=== PATIENT | male | born 1975 | race African-American/Black ===

== ENCOUNTER 2017-05-23 00:25 | Inpatient (IN) | payer OTHER ==
[~2017-05-23] VITALS: Ht 185.4 cm; Wt 85.1 kg
[2017-05-23 00:38] VITALS: BP 125/79; PULSE 99; RESP 20; TEMP 98.2; O2SAT 99
[2017-05-23] MEDS ORDERED: PROZ40CA PO (01:19)
[2017-05-23] MEDS ORDERED: SERO400T PO (01:19)
[2017-05-23] MEDS ORDERED: MULTCAP3 PO (01:19)
[2017-05-23] MEDS ORDERED: COMPLERA (01:19)
[2017-05-23] MEDS ORDERED: SODIUM CHLORIDE 0.9% FLUSH 10 ML FLUSH IVF PRN (01:30)
[2017-05-23 01:57] LABS: AUTOMATED NEUTROPHIL # 4.3 TH/MM3 (1.8-7.7); BASOPHIL % 0.8 % (0.0-2.0); EOSINOPHIL # 0.1 TH/MM3 (0-0.4); EOSINOPHIL % 1.3 % (0.0-4.0); HEMATOCRIT 37.8 % (39.0-51.0); HEMO FLAGS DIFF FINAL; LYMPH % 20.3 % (9.0-44.0); LYMPHOCYTE # 1.2 TH/MM3 (1.0-4.8); MEAN CELL VOLUME 92.4 FL (80.0-100.0); MEAN CORPUSCULAR HEMOGLOBIN 30.4 PG (27.0-34.0); MEAN CORPUSCULAR HGB CONC 32.9 % (32.0-36.0); MONO % 5.9 % (0.0-8.0); NEUT % 71.7 % (16.0-70.0); PLATELET COUNT 358 TH/MM3 (150-450); RED BLOOD COUNT 4.09 MIL/MM3 (4.50-5.90); RED CELL DISTRIBUTION WIDTH 14.4 % (11.6-17.2); WHITE BLOOD COUNT 5.9 TH/MM3 (4.0-11.0)
[2017-05-23 02:00] LABS: BLOOD, URINE NEG (NEG); GLUCOSE,URINE NEG (NEG); KETONE, URINE NEG (NEG); NITRITE,URINE NEG (NEG); PH, URINE 5.5 (5.0-8.5)
[2017-05-23 02:05] LABS: CHLORIDE 103 MEQ/L (98-107); POTASSIUM 3.4 MEQ/L (3.5-5.1); SODIUM (NA) 138 MEQ/L (136-145)
[2017-05-23 02:09] LABS: ANION GAP 8 MEQ/L (5-15); BICARBONATE 26.6 MEQ/L (21.0-32.0); BLOOD UREA NITROGEN 11 MG/DL (7-18)
[2017-05-23 02:11] LABS: URINE COLOR STRAW (YELLW/STRAW)
[2017-05-23 02:12] LABS: ALT (GPT) 37 U/L (12-78); AST (GOT) 40 U/L (15-37); GLOMERULAR FILTRATION RATE 99 ML/MIN (>89)
[2017-05-23 02:13] LABS: TOTAL BILIRUBIN ADULT 0.3 MG/DL (0.2-1.0)
[2017-05-23 02:14] LABS: SQUAMOUS EPITHELIAL CELL URINE 0-5 /hpf (0-5)
[2017-05-23 02:15] LABS: ALKALINE PHOSPHATASE 73 U/L (45-117); COMMENT (UR) CULT NOT INDICATED; CULTURE IF INDICATED CULT NOT INDICATED
--- NOTE | 2017-05-23 02:38 | PD ---
HPI Chief Complaint: Suicide Ideation/Attempt Time Seen by Provider: 01:11 Travel History International Travel<30 days: No Contact w/Intl Traveler<30days: No Traveled to known affect area: No History of Present Illness HPI The patient is a 41-year-old male that feels depressed and is afraid he is going to jump off the [place]. He comes from [place]. He has been off of his psychiatric medicines for 8 days. He has other complaints, he complains of a right inguinal hernia that is been there for 3 months and is not causing any nausea or vomiting and he complains of some pustules on the right anterior shoulder and on the abdomen. He denies any fever. PFSH Past Medical History Autoimmune Disease: Yes (HIV+) Blood Disorders: Yes (HIV+) Depression: Yes (chronic depression) Diminished Hearing: No Inguinal Hernia: Yes Medical other: Yes (Liver failure) Tetanus Vaccination: < 5 Years Influenza Vaccination: Yes Past Surgical History Other Surgery: Yes (Right tib/fib with 11 screws) Social History Alcohol Use: Yes (When he is feeling depressed) Tobacco Use: Yes (varies by availability) Substance Use: Yes Allergies-Medications (Allergen,Severity, Reaction): Coded Allergies: No Known Allergies (Unverified , 05/23/17) Reported Meds & Prescriptions Reported Meds & Active Scripts Active Reported Multivitamins (Multiple Vitamin) 1 Cap Cap PO DAILY [Complera] Seroquel (Quetiapine Fumarate) 400 Mg Tab 400 Mg PO DAILY Prozac (Fluoxetine HCl) 40 Mg Cap 40 Mg PO DAILY Review of Systems Except as stated in HPI: all other systems reviewed are Neg Physical Exam Narrative GENERAL: The patient is alert, oriented 3 in no physical distress. SKIN: Focused skin assessment warm/dry. No needle tracks are present, no recent wrist slash bryan are present. HEAD: Atraumatic. Normocephalic. Neither raccoon eyes. Cespedes sign is present. EYES: Pupils equal and round. No scleral icterus. No injection or drainage. ENT: No nasal bleeding or discharge. Mucous membranes pink and moist. There is no hemotympanum present. NECK: Trachea midline. No JVD. There is no meningismus present. CARDIOVASCULAR: Regular rate and rhythm. No murmur appreciated. RESPIRATORY: No accessory muscle use. Clear to auscultation. Breath sounds equal bilaterally. GASTROINTESTINAL: Abdomen soft, non-tender, nondistended. Hepatic and splenic margins not palpable. No guarding or rebound is present. MUSCULOSKELETAL: No obvious deformities. No clubbing. No cyanosis. No edema. NEUROLOGICAL: Awake and alert. No obvious cranial nerve deficits. Motor grossly within normal limits. Normal speech. PSYCHIATRIC: The patient appears depressed and he does have a flat affect; insight and judgment fair. Data Data Last Documented VS Vital Signs Date Time Temp Pulse Resp B/P (MAP) Pulse Ox O2 Delivery O2 Flow Rate FiO2 05/23/17 01:05 Room Air 05/23/17 00:38 98.2 99 20 125/79 (94) 99 Orders Orders Complete Blood Count With Diff (05/23/17 01:18) Comprehensive Metabolic Panel (05/23/17 01:18) Urinalysis - C+S If Indicated (05/23/17 01:18) Psych Screen (05/23/17 01:18) Sodium Chloride 0.9% Flush (Ns Flush) (05/23/17 01:30) Drug Screen, Random Urine (05/23/17 01:18) Labs Laboratory Tests Test 05/23/17 01:51 White Blood Count 5.9 TH/MM3 Red Blood Count 4.09 MIL/MM3 Hemoglobin 12.4 GM/DL Hematocrit 37.8 % Mean Corpuscular Volume 92.4 FL Mean Corpuscular Hemoglobin 30.4 PG Mean Corpuscular Hemoglobin Concent 32.9 % Red Cell Distribution Width 14.4 % Platelet Count 358 TH/MM3 Mean Platelet Volume 6.8 FL Neutrophils (%) (Auto) 71.7 % Lymphocytes (%) (Auto) 20.3 % Monocytes (%) (Auto) 5.9 % Eosinophils (%) (Auto) 1.3 % Basophils (%) (Auto) 0.8 % Neutrophils # (Auto) 4.3 TH/MM3 Lymphocytes # (Auto) 1.2 TH/MM3 Monocytes # (Auto) 0.3 TH/MM3 Eosinophils # (Auto) 0.1 TH/MM3 Basophils # (Auto) 0.0 TH/MM3 CBC Comment DIFF FINAL Differential Comment Urine Color STRAW Urine Turbidity CLEAR Urine pH 5.5 Urine Specific [place] 1.004 Urine Protein NEG mg/dL Urine Glucose (UA) NEG mg/dL Urine Ketones NEG mg/dL Urine Occult Blood NEG Urine Nitrite NEG Urine Bilirubin NEG Urine Leukocyte Esterase NEG Urine Squamous Epithelial Cells 0-5 /hpf Microscopic Urinalysis Comment CULT NOT INDICATED Blood Urea Nitrogen 11 MG/DL Creatinine 1.00 MG/DL Random Glucose 76 MG/DL Total Protein 7.7 GM/DL Albumin 3.5 GM/DL Calcium Level 9.0 MG/DL Alkaline Phosphatase 73 U/L Aspartate Amino Transf (AST/SGOT) 40 U/L Alanine Aminotransferase (ALT/SGPT) 37 U/L Total Bilirubin 0.3 MG/DL Sodium Level 138 MEQ/L Potassium Level 3.4 MEQ/L Chloride Level 103 MEQ/L Carbon Dioxide Level 26.6 MEQ/L Anion Gap 8 MEQ/L Estimat Glomerular Filtration Rate 99 ML/MIN Urine Opiates Screen NEG Urine Barbiturates Screen NEG Urine Amphetamines Screen NEG Urine Benzodiazepines Screen NEG Urine Cocaine Screen NEG Urine Cannabinoids Screen NEG MDM Medical Decision Making Medical Screen Exam Complete: Yes Emergency Medical Condition: Yes Medical Record Reviewed: Yes Interpretation(s) The CBC shows a hemoglobin of 12.4 and hematocrit of 37.8 but is otherwise normal. The complete metabolic profile shows a potassium of 3.4, AST of 40 but is otherwise normal. The toxicology screen is negative for all substances tested. The urinalysis is normal and culture is not indicated. Differential Diagnosis Major depression, attention seeking maneuver, drug seeking behavior, electrolyte disorder, non-compliance to medications Narrative Course The patient has major depression and noncompliance to medication. He is medically cleared at this time. Physician Communication Physician Communication We discussed the patient with the psychiatric service at [facility]. Disposition: 65 DISC TO PSYCH CARE FACILITY Condition: Stable Marko Preston MD May 23, 2017 02:38
[2017-05-23 03:39] VITALS: BP 128/82; PULSE 78; RESP 18; O2SAT 96
[2017-05-23 08:00] VITALS: BP 124/79; PULSE 73; RESP 18; O2SAT 99
[2017-05-23 12:30] VITALS: BP 130/73; PULSE 70; RESP 18; O2SAT 98
[2017-05-23 17:56] VITALS: BP 128/68; PULSE 92; RESP 16; O2SAT 97
--- NOTE | 2017-05-23 19:33 | PD ---
HPI Chief Complaint: Suicide Ideation/Attempt Time Seen by Provider: 20:03 Travel History International Travel<30 days: No Contact w/Intl Traveler<30days: No Traveled to known affect area: No PFSH Past Medical History Autoimmune Disease: Yes (HIV+) Blood Disorders: Yes (HIV+) Depression: Yes (chronic depression) Diminished Hearing: No Inguinal Hernia: Yes Medical other: Yes (Liver failure) Tetanus Vaccination: < 5 Years Influenza Vaccination: Yes Past Surgical History Other Surgery: Yes (Right tib/fib with 11 screws) Social History Alcohol Use: Yes (When he is feeling depressed) Tobacco Use: Yes (varies by availability) Substance Use: Yes Allergies-Medications (Allergen,Severity, Reaction): Coded Allergies: No Known Allergies (Unverified , 05/23/17) Reported Meds & Prescriptions Reported Meds & Active Scripts Active Reported Odefsey (Uypuivruwsmwh-Gmtstkxjmpl-Mkvmidmao Alafenam) 200-200-25 Mg Tab 1 Tab PO DAILY Multivitamins (Multiple Vitamin) 1 Cap Cap PO DAILY Seroquel (Quetiapine Fumarate) 400 Mg Tab 400 Mg PO DAILY Prozac (Fluoxetine HCl) 40 Mg Cap 40 Mg PO DAILY Data Data Last Documented VS Vital Signs Date Time Temp Pulse Resp B/P (MAP) Pulse Ox O2 Delivery O2 Flow Rate FiO2 05/23/17 17:56 92 16 128/68 (88) 97 Room Air 05/23/17 00:38 98.2 Orders Orders Complete Blood Count With Diff (05/23/17 01:18) Comprehensive Metabolic Panel (05/23/17 01:18) Urinalysis - C+S If Indicated (05/23/17 01:18) Psych Screen (05/23/17 01:18) Sodium Chloride 0.9% Flush (Ns Flush) (05/23/17 01:30) Drug Screen, Random Urine (05/23/17 01:18) Diet Regular Basic (05/23/17 Breakfast) Diet Regular Basic (05/23/17 Lunch) Diet Regular Basic (05/23/17 Dinner) Diet Regular Basic (05/24/17 Breakfast) Emtricitabine (Emtriva) (05/23/17 21:00) Rilpivirine (Edurant) (05/23/17 21:00) Tenofovir (Viread) (05/23/17 21:00) Fluoxetine (Prozac) (05/23/17 21:00) Quetiapine (Seroquel) (05/23/17 21:00) Labs Laboratory Tests Test 05/23/17 01:51 White Blood Count 5.9 TH/MM3 Red Blood Count 4.09 MIL/MM3 Hemoglobin 12.4 GM/DL Hematocrit 37.8 % Mean Corpuscular Volume 92.4 FL Mean Corpuscular Hemoglobin 30.4 PG Mean Corpuscular Hemoglobin Concent 32.9 % Red Cell Distribution Width 14.4 % Platelet Count 358 TH/MM3 Mean Platelet Volume 6.8 FL Neutrophils (%) (Auto) 71.7 % Lymphocytes (%) (Auto) 20.3 % Monocytes (%) (Auto) 5.9 % Eosinophils (%) (Auto) 1.3 % Basophils (%) (Auto) 0.8 % Neutrophils # (Auto) 4.3 TH/MM3 Lymphocytes # (Auto) 1.2 TH/MM3 Monocytes # (Auto) 0.3 TH/MM3 Eosinophils # (Auto) 0.1 TH/MM3 Basophils # (Auto) 0.0 TH/MM3 CBC Comment DIFF FINAL Differential Comment Urine Color STRAW Urine Turbidity CLEAR Urine pH 5.5 Urine Specific [place] 1.004 Urine Protein NEG mg/dL Urine Glucose (UA) NEG mg/dL Urine Ketones NEG mg/dL Urine Occult Blood NEG Urine Nitrite NEG Urine Bilirubin NEG Urine Leukocyte Esterase NEG Urine Squamous Epithelial Cells 0-5 /hpf Microscopic Urinalysis Comment CULT NOT INDICATED Blood Urea Nitrogen 11 MG/DL Creatinine 1.00 MG/DL Random Glucose 76 MG/DL Total Protein 7.7 GM/DL Albumin 3.5 GM/DL Calcium Level 9.0 MG/DL Alkaline Phosphatase 73 U/L Aspartate Amino Transf (AST/SGOT) 40 U/L Alanine Aminotransferase (ALT/SGPT) 37 U/L Total Bilirubin 0.3 MG/DL Sodium Level 138 MEQ/L Potassium Level 3.4 MEQ/L Chloride Level 103 MEQ/L Carbon Dioxide Level 26.6 MEQ/L Anion Gap 8 MEQ/L Estimat Glomerular Filtration Rate 99 ML/MIN Urine Opiates Screen NEG Urine Barbiturates Screen NEG Urine Amphetamines Screen NEG Urine Benzodiazepines Screen NEG Urine Cocaine Screen NEG Urine Cannabinoids Screen NEG MDM Disposition: 65 DISC TO PSYCH CARE FACILITY Condition: Stable Edmar Klein MD May 23, 2017 19:33
[2017-05-23] MEDS ORDERED: EMTR1TAB2 PO (20:11)
[2017-05-23] MEDS ORDERED: RILPIVIRINE 25 MG TAB PO ONE (21:00)
[2017-05-23] MEDS ORDERED: TENOFOVIR DISOPROXIL FUMARATE 300 MG TAB PO ONE (21:00)
[2017-05-23] MEDS ORDERED: FLUoxetine HCL 20 MG CAP PO ONE (21:00)
[2017-05-23] MEDS ORDERED: QUEtiapine FUMARATE 200 MG TAB PO ONE (21:00)
[2017-05-23] MEDS ORDERED: EMTRICITABINE 200 MG CAP PO ONE (21:00)
--- NOTE | 2017-05-24 01:09 | PD ---
Data Data Last Documented VS Vital Signs Date Time Temp Pulse Resp B/P (MAP) Pulse Ox O2 Delivery O2 Flow Rate FiO2 05/23/17 17:56 92 16 128/68 (88) 97 Room Air 05/23/17 00:38 98.2 Orders Orders Complete Blood Count With Diff (05/23/17 01:18) Comprehensive Metabolic Panel (05/23/17 01:18) Urinalysis - C+S If Indicated (05/23/17 01:18) Psych Screen (05/23/17 01:18) Sodium Chloride 0.9% Flush (Ns Flush) (05/23/17 01:30) Drug Screen, Random Urine (05/23/17 01:18) Diet Regular Basic (05/23/17 Breakfast) Diet Regular Basic (05/23/17 Lunch) Diet Regular Basic (05/23/17 Dinner) Diet Regular Basic (05/24/17 Breakfast) Emtricitabine (Emtriva) (05/23/17 21:00) Rilpivirine (Edurant) (05/23/17 21:00) Tenofovir (Viread) (05/23/17 21:00) Fluoxetine (Prozac) (05/23/17 21:00) Quetiapine (Seroquel) (05/23/17 21:00) Labs Laboratory Tests Test 05/23/17 01:51 White Blood Count 5.9 TH/MM3 Red Blood Count 4.09 MIL/MM3 Hemoglobin 12.4 GM/DL Hematocrit 37.8 % Mean Corpuscular Volume 92.4 FL Mean Corpuscular Hemoglobin 30.4 PG Mean Corpuscular Hemoglobin Concent 32.9 % Red Cell Distribution Width 14.4 % Platelet Count 358 TH/MM3 Mean Platelet Volume 6.8 FL Neutrophils (%) (Auto) 71.7 % Lymphocytes (%) (Auto) 20.3 % Monocytes (%) (Auto) 5.9 % Eosinophils (%) (Auto) 1.3 % Basophils (%) (Auto) 0.8 % Neutrophils # (Auto) 4.3 TH/MM3 Lymphocytes # (Auto) 1.2 TH/MM3 Monocytes # (Auto) 0.3 TH/MM3 Eosinophils # (Auto) 0.1 TH/MM3 Basophils # (Auto) 0.0 TH/MM3 CBC Comment DIFF FINAL Differential Comment Urine Color STRAW Urine Turbidity CLEAR Urine pH 5.5 Urine Specific [place] 1.004 Urine Protein NEG mg/dL Urine Glucose (UA) NEG mg/dL Urine Ketones NEG mg/dL Urine Occult Blood NEG Urine Nitrite NEG Urine Bilirubin NEG Urine Leukocyte Esterase NEG Urine Squamous Epithelial Cells 0-5 /hpf Microscopic Urinalysis Comment CULT NOT INDICATED Blood Urea Nitrogen 11 MG/DL Creatinine 1.00 MG/DL Random Glucose 76 MG/DL Total Protein 7.7 GM/DL Albumin 3.5 GM/DL Calcium Level 9.0 MG/DL Alkaline Phosphatase 73 U/L Aspartate Amino Transf (AST/SGOT) 40 U/L Alanine Aminotransferase (ALT/SGPT) 37 U/L Total Bilirubin 0.3 MG/DL Sodium Level 138 MEQ/L Potassium Level 3.4 MEQ/L Chloride Level 103 MEQ/L Carbon Dioxide Level 26.6 MEQ/L Anion Gap 8 MEQ/L Estimat Glomerular Filtration Rate 99 ML/MIN Urine Opiates Screen NEG Urine Barbiturates Screen NEG Urine Amphetamines Screen NEG Urine Benzodiazepines Screen NEG Urine Cocaine Screen NEG Urine Cannabinoids Screen NEG MDM Supervised Visit with EAN: Yes Narrative Course Patient is a 41-year-old male who is here on [place] act by Dr. Preston last night. The patient stop me in the [place] to asked me for my assistance. He states that he is due for his Seroquel and 2 other pills one for his HIV which she doesn't know the name of. Nursing is done an assessment to obtain his medication history and I have ordered his nighttime meds. The patient has been medically cleared for psychiatric evaluation by Dr. Preston. He is under [place] act. Of note I did find a note from Dr. Landa in the patient's chart, I was able to contact Dr. Landa and he states this was meant for another patient is an error on this patient's chart. Patient remains medically cleared for psychiatric evaluation and disposition. Disposition: 65 DISC TO [facility]AC[facility] Condition: Stable Edmar Klein MD May 24, 2017 01:09
[2017-05-24 13:30] VITALS: BP 117/64; PULSE 68; RESP 19; TEMP 98.9; O2SAT 98
[2017-05-24 17:39] VITALS: BP 138/63; PULSE 62; RESP 18; O2SAT 98
[2017-05-24 22:00] VITALS: BP 118/68; PULSE 64; RESP 16; O2SAT 98
[2017-05-25] MEDS ORDERED: traZODone HCL 50 MG TAB PO PRN (00:45)
[2017-05-25] MEDS ORDERED: ALUMINUM/MAGNESIUM/SIMETH 30 ML CUP PO PRN (00:45)
[2017-05-25] MEDS ORDERED: diphenhydrAMINE HCL 50 MG CAP - HS PRN PO (00:45)
[2017-05-25] MEDS ORDERED: diphenhydrAMINE HCL 50 MG/ML VIAL IM PRN (00:45)
[2017-05-25] MEDS ORDERED: LORazepam 2 MG/ML VIAL IM PRN (00:45)
[2017-05-25] MEDS ORDERED: BENZTROPINE MESYLATE 2 MG/2 ML VIAL IM PRN (00:45)
[2017-05-25] MEDS ORDERED: diphenhydrAMINE HCL 50 MG CAP PO PRN (00:45)
[2017-05-25] MEDS ORDERED: diphenhydrAMINE HCL 50 MG/ML VIAL - HS PRN IM (00:45)
[2017-05-25] MEDS ORDERED: MAGNESIUM HYDROXIDE SUSP 30 ML CUP PO PRN (00:45)
[2017-05-25] MEDS ORDERED: BENZTROPINE MESYLATE 1 MG TAB PO PRN (00:45)
[2017-05-25] MEDS ORDERED: LORazepam 1 MG TAB PO PRN (00:45)
[2017-05-25] MEDS: hydrOXYzine HCL 50 MG TAB PO PRN ×3 (02:08→20:34)
[2017-05-25] MEDS: ACETAMINOPHEN 325 MG TAB PO PRN ×3 (02:09→20:34)
[2017-05-25 02:34] VITALS: BP 101/76; PULSE 76; RESP 18; TEMP 97.1; O2SAT 98
[2017-05-25 05:31] VITALS: BP 102/65; PULSE 68; RESP 16; TEMP 98; O2SAT 97
[2017-05-25] MEDS ORDERED: NICOTINE 21 MG/24 HR PATCH T-DERMAL SCH (09:00)
[2017-05-25] MEDS ORDERED: FLUoxetine HCL 20 MG CAP PO SCH (09:00)
[2017-05-25] MEDS ORDERED: QUEtiapine FUMARATE 100 MG TAB PO SCH (09:00)
--- NOTE | 2017-05-25 13:44 | HHI.HP ---
Provisional Diagnosis Admission Date May 25, 2017 at 00:35 [place] I. Adjustment disorder with mixed disturbances of emotion and conduct f 41.25 Certification of Person's Competence To Provide Express and Informed Consent I have personally examined Michael VenturaJr , a person being served at [facility] on, May 25, 2017 13:30. Express and informed consent means consent voluntarily given in writing, by a competent person, after sufficient explanation and disclosure of the subject matter involved to enable the person to make a knowing and willful decision without any element of force, fraud, deceit, duress, or other form of constraint or coercion. This person is 18 years of age or older, is not now known to be incompetent to consent to treatment with a guardian advocate, and does not have a health care surrogate or proxy currently making medical treatment decisions. I have found this person to be one of the following: [xxx] Competent to provide express and informed consent, as defined above, for voluntary admission to this facility and is competent to provide express and informed consent for treatment. He/she has the consistent capacity to make well reasoned, willful, and knowing decisions concerning his or her medical or mental health treatment. The person fully and consistently understands the purpose of the admission for examination/placement and is fully capable of personally exercising all rights assured [place] Incompetent to provide express and informed consent to voluntary admission, and this is incompetent to provide express and informed consent to treatment. The person must be transferred to involuntary status and a petition for a guardian advocate filed with the Circuit Court. [] Refusing to provide express and informed consent to voluntary admission but is competent to provide express and informed consent for treatment. The person must be discharged or transferred to involuntary status. Form shall be completed within 24 hours of a person's arrival at the receiving facility and filed in the clinical record of each person: 1. Admitted on a voluntary basis 2. Permitted to provide express and informed consent to his/her own treatment 3. Allowed to transfer from involuntary to voluntary status 4. Prior to permitting a person to consent to his or her own treatment after having been previously found incompetent to consent to treatment. History of Present Illness Capacity: Has Capacity HPI Patient is a 38 thrilled Afro-Indian male who initially comes here under [place] act signed by Dr. Marko Preston dated 05/23/17 at 02 100 a.m. here at [facility] that document reviewed patient a stating that patient states he plans to jump off [place] bridge. Not taking psych meds 8 days. Patient seen screened in ED urine toxicology negative bladder: Negative. Patient seen in his room with nurse Rebecca and counselor Shirlene present throughout session. Patient is a somewhat aggressive irritable demanding entitled Afro-Indian male. Giving somewhat long-winded convoluted somewhat confusing and contradictory history of being HIV positive since 2011. How that is devastated his . He is been homeless for an extended period of time. Is having various incarcerations. Has had various psychiatric hospitalizations between [facility] and here in [facility]. He is now demanding identifications, placement, medications. He states he contracted HIV by heterosexual activity. He denies voices visions with this. After talking with us he states suicidality has markedly diminished. He does acknowledge past history of drug use incarcerations related to drug activities. He states he has no support group. In [facility]. He does have a mother in [place] she is elderly and unable to help him. In any event at the present time I feel patient does meet criteria for brief inpatient psychiatric hospitalization. Though I feel he does have capacity to sign for admission and for medications thus I'll lift the [place] act allow her sign voluntary. We'll continue his Seroquel though it 20 mg twice a day as opposed to 40 mg of the a.m. We will continue his Prozac also causes substance abuse history will refrain from any benzodiazepines or opiates. We will discuss with him placement potential at [facility] the [facility], given referrals to our HIV resources in the community though he again somewhat diminishes that stating he knows what to do since he has done that in [place] already. He'll also have a hospitalist consult to monitor his HIV treatment. Hopeless to be short stay and Abilify and placement of this gentleman attempt to get him referred to appropriate medical resources Review of Systems Constitutional: DENIES: Diaphoretic episodes, Fatigue, Fever, Weight gain, Weight loss, Chills, Dizziness, Change in appetite, Night Sweats Endocrine: DENIES: Heat/cold intolerance, Polydipsia, Polyuria, Polyphagia Eyes: DENIES: Blurred vision, Diplopia, Eye inflammation, Eye pain, Vision loss , Photosensitivity, Double Vision Ears, nose, mouth, throat: DENIES: Tinnitus, Hearing loss, Vertigo, Nasal discharge, Oral lesions, Throat pain, Hoarseness, Ear Pain, Running Nose, Epistaxis, Sinus Pain, Toothache, Odynophagia Respiratory: DENIES: Apneas, Cough, Snoring, Wheezing, Hemoptysis, Sputum production, Shortness of breath Cardiovascular: DENIES: Chest pain, Palpitations, Syncope, Dyspnea on Exertion , PND, Lower Extremity Edema, Orthopnea, Claudication Gastrointestinal: DENIES: Abdominal pain, Black stools, Bloody stools, Constipation, Diarrhea, Nausea, Vomiting, Difficulty Swallowing, Anorexia Genitourinary: DENIES: Sexual dysfunction, Urinary frequency, Urinary incontinence, Urgency, Hematuria, Dysuria, Nocturia, Penile Discharge, Testicular Pain, Testicular Swelling Musculoskeletal: DENIES: Joint pain, Muscle aches, Stiffness, Joint Swelling, Back pain, Neck pain Integumentary: DENIES: Abnormal pigmentation, Nail changes, Pruritus, Rash Hematologic/lymphatic: DENIES: Bruising, Lymphadenopathy Immunologic/allergic: DENIES: Eczema, Urticaria Neurologic: DENIES: Abnormal gait, Headache, Localized weakness, Paresthesias, Seizures, Speech Problems, Tremor, Poor Balance Psychiatric: COMPLAINS OF: Depression, Suicidal Ideation (vague ideation no denies today) Past Psych History Psychological trauma history HIV-positive since 2011 Violence risk - others (6 mos) Patient shows some antisocial behaviors Violence risk - self (6 mos) Made vague suicidal statement Substance Abuse History Drugs/Alcohol past 12 months History of multiple drug abuse also recent use of alcohol Past Family Social History Coded Allergies: No Known Allergies (Unverified , 05/23/17) Past Medical History HIV-positive Reported Medications Xfufglkfopwdz-Bbvqhyhmhwt-Dyaztiqxh Alafenam (Odefsey) 200-200-25 Mg Tab, 1 TAB PO DAILY for Mgmt Viral Infection, #30 TAB 0 Refills 05/23/17 Multiple Vitamin (Multivitamins) 1 Cap Cap, PO DAILY 05/23/17 Quetiapine (Seroquel) 400 Mg Tab, 400 MG PO DAILY, #30 TAB 0 Refills 05/23/17 Fluoxetine (Prozac) 40 Mg Cap, 40 MG PO DAILY, #30 CAP 0 Refills 05/23/17 Discontinued Reported Medications [Complera] No Conflict Check 05/23/17 Current Medications Medications (Trade) Dose Ordered Sig/Марина Route Start Time Stop Time Status Last Admin (NS Flush) 2 ml UNSCH PRN IVF 05/23/17 01:30 (PROzac) 20 mg DAILY PO 05/25/17 09:00 05/25/17 09:49 (SEROquel) 100 mg BID PO 05/25/17 09:00 05/25/17 09:49 (Ativan) 1 mg Q6H PRN PO 05/25/17 00:45 (Ativan Inj) 1 mg Q6H PRN IM 05/25/17 00:45 (Atarax) 50 mg Q6H PRN PO 05/25/17 00:45 05/25/17 02:08 (Benadryl) 50 mg Q6H PRN PO 05/25/17 00:45 (Benadryl Inj) 50 mg Q6H PRN IM 05/25/17 00:45 (Cogentin) 1 mg Q12H PRN PO 05/25/17 00:45 (Cogentin Inj) 1 mg Q12H PRN IM 05/25/17 00:45 (Benadryl) 50 mg HS PRN PO 05/25/17 00:45 (Benadryl Inj) 50 mg HS PRN IM 05/25/17 00:45 (Desyrel) 50 mg HS PRN PO 05/25/17 00:45 (Tylenol) 650 mg Q4H PRN PO 05/25/17 00:45 05/25/17 02:09 (Milk Of Magnesia Liq) 30 ml DAILY PRN PO 05/25/17 00:45 (Mag-Al Plus Susp Liq) 30 ml Q6H PRN PO 05/25/17 00:45 (Habitrol 21 Mg Patch.24 Hr) 1 patch DAILY T-DERMAL 05/25/17 09:00 05/25/17 09:00 Miscellaneous Information 1 HS T-DERMAL 05/25/17 21:00 Family History Patient has elderly mother in [place] Social History Patient homeless Patient's Strengths (min. 2) Patient verbal irritable access healthcare Physical Exam Patient seen screened in ED exam reviewed and agreed with. Patient sitting quietly on his bed in his room he is in no acute distress. Neck Supple. Patient no respiratory distress. No complaints of abdominal pain to me, patient moves all 4 extremities without difficulty no abnormal motor movements noted Vital Signs Vital Signs Date Time Temp Pulse Resp B/P (MAP) Pulse Ox O2 Delivery O2 Flow Rate FiO2 05/25/17 05:31 98.0 68 16 102/65 (77) 97 05/24/17 22:00 Room Air I/O 05/25/17 05/25/17 05/26/17 08:00 16:00 00:00 Intake Total 240 ml 240 ml Balance 240 ml 240 ml Mental Status Examination Alert oriented Afro-Indian male guarded irritable demanding entitled with intense eye contact Appearance Clean and neat Speech: Pressured, Rapid Orientation: x3 Memory: Unremarkable Thought Process: Linear Thought Content: Paranoid Language Fair Fund of Knowledge Fair Hallucination Type: None Attention and Concentration: Other (fair) Suicidal Ideation: Yes (made suicidal statements to police somewhat ambiguous today with me) Previous Suicide Attempts: No Homicidal Ideation: No Previous Homicide Attempts: No Insight: Poor Judgment: Poor Affect: Other (increased range and intensity) Mood: Euthymic (to moderately dysphoric), Angry, Oppositional, Irritable Motor Activity: Normal gait Assessment & Plan Problem List: (1) Adjustment disorder with mixed disturbance of emotions and conduct ICD Codes: F43.25 - Adjustment disorder with mixed disturbance of emotions and conduct Assessment & Plan Estimated LOS: 5-7 days at this point patient meets criteria for brief voluntary inpatient psychiatric assessment. I will lift [place] act allow patient to sign voluntary. She medication adjustment above we will refrain from opiates and benzodiazepines. The hospitalist consult with us. We will have patient call solutions by the for possible placement s Discharge Planning To be determined Request HC Surrog/Guard Advoc?: Michael Cross MD May 25, 2017 13:44
--- NOTE | 2017-05-25 15:11 | PD.CONS ---
HPI Service [facility] Hospitalists Consult Requested By Dr. Vuong Reason for Consult "Management of HIV and medical medications" Primary Care Physician No Primary Care Physician Diagnoses: (1) HIV (human immunodeficiency virus infection) (2) Inguinal hernia (3) Rash (4) Adjustment disorder with mixed disturbance of emotions and conduct History of Present Illness The patient is a 41 year old male admitted to inpatient psychiatry for suicidal ideation. Hospitalist consult requested for medical management. Patient's only chronic medical problem is HIV. He has been out of his HIV medications recently. He has a rash on his back, chest, and abdomen. It is pruritic. [place] was at the beach a lot over the last few days and was sunburned. He states that he borrowed someone's sunscreen after a while and applied it to his upper body. He also reports a right inguinal hernia, which has been present for a few months. It is painful at times, especially when straining to have a bowel movement. Review of Systems Constitutional: DENIES: Fever, Chills, Night Sweats Eyes: DENIES: Blurred vision, Vision loss Ears, nose, mouth, throat: DENIES: Hearing loss Respiratory: DENIES: Cough, Wheezing, Sputum production, Shortness of breath Cardiovascular: DENIES: Chest pain, Palpitations, Dyspnea on Exertion, Lower Extremity Edema Gastrointestinal: COMPLAINS OF: Abdominal pain (right inguinal hernia.), DENIES : Constipation, Diarrhea, Nausea, Vomiting Genitourinary: DENIES: Urinary frequency, Urinary incontinence, Urgency, Hematuria, Dysuria, Nocturia Musculoskeletal: DENIES: Joint pain, Muscle aches Integumentary: COMPLAINS OF: Pruritus, Rash Hematologic/lymphatic: DENIES: Bruising Neurologic: DENIES: Headache Past Family Social History Allergies: Coded Allergies: No Known Allergies (Unverified , 05/23/17) Past Medical History HIV Past Surgical History Right ankle fracture repair Reported Medications Multivitamins (Multiple Vitamin) 1 Cap Cap PO DAILY [Complera] Seroquel (Quetiapine Fumarate) 400 Mg Tab 400 Mg PO DAILY Prozac (Fluoxetine HCl) 40 Mg Cap 40 Mg PO DAILY Family History Brother has asthma, heart problem. Social History Smokes cigarettes (amount "variable"). Drinks alcohol often. "No marijuana or cocaine in the last month". Physical Exam Vital Signs Vital Signs Date Time Temp Pulse Resp B/P (MAP) Pulse Ox O2 Delivery O2 Flow Rate FiO2 05/25/17 05:31 98.0 68 16 102/65 (77) 97 05/25/17 02:34 97.1 76 18 101/76 (84) 98 05/25/17 01:29 05/24/17 22:00 64 16 118/68 (85) 98 Room Air 05/24/17 17:39 62 18 138/63 (88) 98 Room Air Physical Exam GENERAL: Well-nourished, well-developed male in no acute distress. HEENT: Normocephalic, atraumatic. Pupils equal, round and reactive. Extraocular movements intact. No scleral icterus. No injection or drainage. Oropharynx is clear. Mucous membranes are moist. CARDIOVASCULAR: Regular rate and rhythm without murmurs, gallops, or rubs. RESPIRATORY: Clear to auscultation. No wheezes, rales, or rhonchi. Breathing is non-labored. GASTROINTESTINAL: Abdomen soft, non-tender, nondistended. EXTREMITIES: No lower extremity edema. No calf tenderness. Right inguinal hernia noted. It is tender, but reducible. PSYCH: Alert and oriented x 3. SKIN: Papular rash on back, abdomen, chest. Skin peeling on upper back/ shoulders. Result Diagram: 05/23/1715005/23/17150 Assessment and Plan Assessment and Plan 1. Adjustment disorder: Management per psychiatry. 2. HIV: Continue Emtricitabine/Rilpivirine/Tenofovir. Follow up as outpatient. 3. Rash: Pruritic rash on trunk. Add Benadryl topical. 4. Inguinal hernia: Conservative treatment. If worsens, consider surgical consult. Chriss Stephenson MD May 25, 2017 15:11
[2017-05-25 18:20] VITALS: BP 116/66; PULSE 69; RESP 18; TEMP 98.1; O2SAT 99
[2017-05-25] MEDS: QUEtiapine FUMARATE 100 MG TAB PO SCH (20:34)
[2017-05-25] MEDS ORDERED: REMOVE OLD NICOTINE PATCH T-DERMAL SCH (21:00)
[2017-05-25 21:12] LABS: BICARBONATE 29.1 MEQ/L (21.0-32.0); POTASSIUM 3.9 MEQ/L (3.5-5.1)
[2017-05-26 05:48] VITALS: BP 104/66; PULSE 62; RESP 16; TEMP 97.7; O2SAT 98
[2017-05-26] MEDS: QUEtiapine FUMARATE 100 MG TAB PO SCH (08:51)
[2017-05-26] MEDS ORDERED: EMTRICITABINE RILPIVIRINE TENOFOVIR ALAFENAM PO SCH (09:00)
[2017-05-26] MEDS ORDERED: NICOTINE 21 MG/24 HR PATCH T-DERMAL SCH (09:00)
[2017-05-26] MEDS ORDERED: FLUoxetine HCL 20 MG CAP PO SCH (09:00)
[2017-05-26] MEDS ORDERED: NON-FORMULARY DRUG (Quetiapine (Seroquel) 400 MG) PO SCH (09:00)
--- NOTE | 2017-05-26 09:45 | HHI.DS ---
Psychiatry Discharge Summary Inpatient Psychiatric care?: Yes Advance Directive: No Reason Not Provided: Declined Mental Health AdvanceDirective: No Health Care Proxy: No Admission Admission Date May 25, 2017 at 00:35 Admission Diagnosis: (1) Adjustment disorder with mixed disturbance of emotions and conduct ICD Code: F43.25 - Adjustment disorder with mixed disturbance of emotions and conduct (2) HIV (human immunodeficiency virus infection) ICD Code: B20 - Human immunodeficiency virus [HIV] disease Brief History Patient is a 38 thrilled Afro-[place] male who initially comes here under Lynn act signed by Dr. Marko Preston dated 05/23/17 at 02 100 a.m. here at [facility] that document reviewed patient a stating that patient states he plans to jump off [facility]. Not taking psych meds 8 days. Patient seen screened in ED urine toxicology negative bladder: Negative. Patient seen in his room with nurse Rebecca and counselor Shirlene present throughout session. Patient is a somewhat aggressive irritable demanding entitled Afro-[place] male. Giving somewhat long-winded convoluted somewhat confusing and contradictory history of being HIV positive since 2011. How that is devastated his . He is been homeless for an extended period of time. Is having various incarcerations. Has had various psychiatric hospitalizations between [facility] and here in [facility]. He is now demanding identifications, placement, medications. He states he contracted HIV by heterosexual activity. He denies voices visions with this. After talking with us he states suicidality has markedly diminished. He does acknowledge past history of drug use incarcerations related to drug activities. He states he has no support group. In [facility]. He does have a mother in [place] she is elderly and unable to help him. In any event at the present time I feel patient does meet criteria for brief inpatient psychiatric hospitalization. Though I feel he does have capacity to sign for admission and for medications thus I'll lift the Lynn act allow her sign voluntary. We'll continue his Seroquel though it 20 mg twice a day as opposed to 40 mg of the a.m. We will continue his Prozac also causes substance abuse history will refrain from any benzodiazepines or opiates. We will discuss with him placement potential at [facility], given referrals to our HIV resources in the community though he again somewhat diminishes that stating he knows what to do since he has done that in [place] already. He'll also have a hospitalist consult to monitor his HIV treatment. Hopeless to be short stay and Abilify and placement of this gentleman attempt to get him referred to appropriate medical resources Tobacco Use In Past 30 Days: 5 or More Cigarettes/Day Alcohol Use: 2-4 Times Per Month Hospital Course Patient seen initial this morning with floor staff. Patient now states no suicidality no homicidality no voices or visions. It appears he now realizes that he can get better services for his HIV and mental health issues in [place] then here. He is aware of and has had contact with those services in [place] in the past. He states he slept well last night. He does wish to be discharged today. Is asking for transportation assistance to [place]. He states he will then follow-up with appropriate services there on his own. At this time patient does not meet criteria for further inpatient psychiatric hospitalization. Thus I'll allow patient to be discharged today to himself. No Rx by me. Each take responsibility for follow-up both medical and mental health services in [place] Results Blood Pressure 104 / 66 Vital Signs Date Time Temp Pulse Resp B/P (MAP) Pulse Ox O2 Delivery O2 Flow Rate FiO2 05/26/17 05:48 97.7 62 16 104/66 (79) 98 05/24/17 22:00 Room Air Laboratory Tests Test 05/25/17 19:16 Estimat Glomerular Filtration Rate 87 ML/MIN (>89) Summary of Procedures None done Pending results at discharge: No Medications # of Antipsychotic meds at D/C: 0 Approp Antipsych med options 1 - Minimum of three failed multiple trials of monotherapy. 2 - Documented plan to taper to monotherapy due to previous use of multiple meds OR cross-taper in progress at D/C. 3 - Documentation of augmentation of Clozapine. 4 - Justification other than those listed in allowable values 1-3, document here : Discharge Discharge Date: May 26, 2017 Discharge Diagnosis: (1) Adjustment disorder with mixed disturbance of emotions and conduct Diagnosis: Principal ICD Code: F43.25 - Adjustment disorder with mixed disturbance of emotions and conduct (2) HIV (human immunodeficiency virus infection) Diagnosis: Secondary ICD Code: B20 - Human immunodeficiency virus [HIV] disease Mental Status Exam at Disch Alert oriented Afro-[place] male calm cooperative with me. He is normoactive. Mood is euthymic with good range intensity was affect. Speech rate and rhythm are within normal limits no formal thought disorders. No auditory or visual hallucinations. No delusions. Insight and judgment is poor to fair. Cognition grossly intact. Pt Condition on Discharge: Stable Discharge Disposition: Discharge Home Discharge Instructions Diet Instructions: As Tolerated, No Restrictions Activities you can perform: Regular-No Restrictions Scheduled Appointment: follow-up medical and mental health services in [place] patient to arrange himself Discharge Time > 30 minutes Discharge/Advance Care Plan Health Problems: (1) Adjustment disorder with mixed disturbance of emotions and conduct Goals to promote your health * To prevent worsening of your condition and complications * To maintain your health at the optimal level Directions to meet your goals Take your medications as prescribed Follow your dietary instruction Follow activity as directed Keep your appointments as scheduled Take your immunizations and boosters as scheduled If your symptoms worsen call your PCP, if no PCP go to Urgent Care Center or Emergency Room For 17/04 questions related to your inpatient stay or results of tests pending at discharge, please contact Dr. Michael Stewart at Smoking is Dangerous to Your Health. Avoid second hand smoking Michael tSewart MD May 26, 2017 09:45
== END 2017-05-26 11:40 | disposition home or self-care (01) | DRG 882 ==
LOC: PHED 00:25 → NEDA 05-25 00:35 → H260 05-25 02:00
PROVIDERS: ADMIT Psychiatry & Neurology Psychiatry; ATTEND Psychiatry & Neurology Psychiatry
DX: F43.25 Adjustment disorder with mixed disturbance of emotions and conduct (principal); B20 Human immunodeficiency virus [HIV] disease; Z59.0 Homelessness; K40.90 Unilateral inguinal hernia, without obstruction or gangrene, not specified as recurrent; R21 Rash and other nonspecific skin eruption; F17.210 Nicotine dependence, cigarettes, uncomplicated
CPT/HCPCS: 80048; 80053; 80307; 81001; 85025; 99285

== ENCOUNTER 2018-03-15 15:03 | Emergency (ER) | payer OTHER ==
[~2018-03-15] VITALS: Ht 167.6 cm; Wt 56.8 kg
[~2018-03-15 15:03] MED LIST: EMTR1TAB2 PO; MULTCAP3 PO; PROZ40CA PO; SERO400T PO
[2018-03-15] MEDS ORDERED: IOHEXOL 350 MG/ML 10 ML VIAL (for RAD DIAG) IVCONTRAST ONE (15:04)
[2018-03-15 15:23] VITALS: BP 143/87; PULSE 73; RESP 16; TEMP 98.5; O2SAT 99
[2018-03-15 15:55] VITALS: BP 161/97; PULSE 73; RESP 18; TEMP 97.9; O2SAT 99
[2018-03-15] MEDS ORDERED: SODIUM CHLOR 0.9% 1000 ML INJ 1,000 ML IV ONE (16:00)
[2018-03-15] MEDS ORDERED: PANTOPRAZOLE SODIUM 40 MG VIAL IV PUSH ONE (16:00)
[2018-03-15] MEDS ORDERED: OLAN10TA PO (16:09)
[2018-03-15] MEDS ORDERED: TRAZ1TAB14 PO (16:09)
[2018-03-15] MEDS ORDERED: METOCLOPRAMIDE HCL 10 MG/2 ML VIAL IV PUSH ONE (16:15)
--- NOTE | 2018-03-15 16:53 | PD ---
HPI Chief Complaint: Medical Clearance Time Seen by Provider: 15:43 Travel History International Travel<30 days: No Contact w/Intl Traveler<30days: No Traveled to known affect area: No History of Present Illness HPI 42-year-old male the presents to the ED for evaluation of multiple complaints. Patient's main complaint appears to be "intestinal issues ". Per patient has been having abdominal pain on and off for 8 months. He is also been having nausea and vomiting has been vomiting blood for the past 2 days. The patient he came here from [place] to work and apparently he cannot work because he had more pain. He also has a hernia that he wants us to check out on his right lower side. Per patient he has been in different hospitals the past year. Per patient he also has a history of HIV positive and currently takes no medications. Per patient he has been almost out of it for about a year. He states that his pain currently 7 out of 10. Per patient were concerned him the most is that he was been vomiting a couple times with blood. He states having had alcohol today with denies drinking alcohol daily basis. He states also that he has used drugs in the past and states that he is cocaine. He denies any chest pain or shortness of breath. No urinary or bowel movement issues. He states that he does have pain and swelling in his right testicle he attributes this to the hernia that his hand. He denies any injuries. Lastly patient also complains that he feels depressed and suicidal and he wants to "be Lynn acted ". Per patient has been dealing with depression and has a history of depression himself. He takes multiple medications for this. Per patient does not seem to be working and he feels hopeless which is what he is seeking help for. Per patient he "wants to "". PFSH Past Medical History Autoimmune Disease: Yes (HIV+) Blood Disorders: Yes (HIV SINCE 2011) Depression: Yes Cancer: No Cardiovascular Problems: No Diabetes: No Diminished Hearing: No Endocrine: No Genitourinary: No Headaches: No Hiatal Hernia: Yes Immune Disorder: Yes Inguinal Hernia: Yes Musculoskeletal: No Neurologic: No Psychiatric: No Reproductive: No Respiratory: No Seizures: No Sickle Cell Disease: No Tetanus Vaccination: < 5 Years Past Surgical History Other Surgery: Yes (Right tib/fib with 11 screws) Social History Alcohol Use: Yes (BEER THIS MORNING) Tobacco Use: Yes (WHATEVER HE CAN GET) Substance Use: Yes (COCAINE THIS WEEK) Allergies-Medications (Allergen,Severity, Reaction): Coded Allergies: No Known Allergies (Verified Adverse Reaction, Unknown, 03/15/18) Reported Meds & Prescriptions Reported Meds & Active Scripts Active Reported Trazodone (Trazodone HCl) 150 Mg Tablet 150 Mg PO HS Olanzapine 10 Mg Tab 10 Mg PO HS Odefsey (Fanzbjzeihwgs-Rgaalpjqchs-Yggcsxzos Alafenam) 200-200-25 Mg Tab 1 Tab PO DAILY Prozac (Fluoxetine HCl) 40 Mg Cap 40 Mg PO DAILY Review of Systems Except as stated in HPI: all other systems reviewed are Neg Physical Exam Narrative GENERAL: SKIN: Warm and dry. HEAD: Atraumatic. Normocephalic. EYES: Pupils equal and round. No scleral icterus. No injection or drainage. ENT: No nasal bleeding or discharge. Mucous membranes pink and moist. Tongue is midline. No uvula deviation. NECK: Trachea midline. No JVD. CARDIOVASCULAR: Regular rate and rhythm. No murmurs, S3, S4. RESPIRATORY: No accessory muscle use. Clear to auscultation. Breath sounds equal bilaterally. GASTROINTESTINAL: Abdomen soft, tender especially on the right pelvic area, nondistended. Hepatic and splenic margins not palpable. Patient has a area of swelling on the right testicle area and pelvic. Appears to be repducible. 2+ pulses bilaterally. Sensation intact bilaterally. MUSCULOSKELETAL: Extremities without clubbing, cyanosis, or edema. No obvious deformities. NEUROLOGICAL: Awake and alert. No obvious cranial nerve deficits. Motor grossly within normal limits. Five out of 5 muscle strength in the arms and legs. Normal speech. PSYCHIATRIC: Appropriate mood and affect; insight and judgment normal. Data Data Last Documented VS Vital Signs Date Time Temp Pulse Resp B/P (MAP) Pulse Ox O2 Delivery O2 Flow Rate FiO2 03/15/18 18:46 80 18 136/84 (101) 99 Room Air 03/15/18 15:55 97.9 Orders Orders Electrocardiogram (03/15/18 15:48) Complete Blood Count With Diff (03/15/18 15:48) Comprehensive Metabolic Panel (03/15/18 15:48) Prothrombin Time / Inr (Pt) (03/15/18 15:48) Act Partial Throm Time (Ptt) (03/15/18 15:48) Lipase (03/15/18 15:48) Urinalysis - C+S If Indicated (03/15/18 15:48) Magnesium (Mg) (03/15/18 15:48) Type And Screen (03/15/18 15:48) Drug Screen, Random Urine (03/15/18 15:48) Alcohol (Ethanol) (03/15/18 15:48) Ct Abd/Pel W Iv Contrast(Rout) (03/15/18 ) Sodium Chlor 0.9% 1000 Ml Inj (Ns 1000 M (03/15/18 16:00) Us Testicles W Doppler (03/15/18 ) Pantoprazole Inj (Protonix Inj) (03/15/18 16:00) Metoclopramide Inj (Reglan Inj) (03/15/18 16:15) Morphine Inj (Morphine Inj) (03/15/18 17:00) Iohexol 350 Inj (Omnipaque 350 Inj) (03/15/18 15:04) Psych Screen (03/15/18 18:46) Labs Laboratory Tests Test 03/15/18 16:25 03/15/18 16:50 White Blood Count 2.1 TH/MM3 Red Blood Count 4.37 MIL/MM3 Hemoglobin 12.9 GM/DL Hematocrit 38.4 % Mean Corpuscular Volume 87.8 FL Mean Corpuscular Hemoglobin 29.5 PG Mean Corpuscular Hemoglobin Concent 33.6 % Red Cell Distribution Width 18.2 % Platelet Count 296 TH/MM3 Mean Platelet Volume 7.6 FL Neutrophils (%) (Auto) 37.5 % Lymphocytes (%) (Auto) 49.4 % Monocytes (%) (Auto) 9.9 % Eosinophils (%) (Auto) 1.0 % Basophils (%) (Auto) 2.2 % Neutrophils # (Auto) 0.8 TH/MM3 Lymphocytes # (Auto) 1.0 TH/MM3 Monocytes # (Auto) 0.2 TH/MM3 Eosinophils # (Auto) 0.0 TH/MM3 Basophils # (Auto) 0.0 TH/MM3 CBC Comment AUTO DIFF Differential Comment AUTO DIFF CONFIRMED Platelet Estimate NORMAL Platelet Morphology Comment NORMAL Prothrombin Time 10.0 SEC Prothromb Time International Ratio 1.0 RATIO Activated Partial Thromboplast Time 28.7 SEC Blood Urea Nitrogen 7 MG/DL Creatinine 0.94 MG/DL Random Glucose 59 MG/DL Total Protein 8.6 GM/DL Albumin 4.0 GM/DL Calcium Level 8.7 MG/DL Magnesium Level 2.4 MG/DL Alkaline Phosphatase 83 U/L Aspartate Amino Transf (AST/SGOT) 75 U/L Alanine Aminotransferase (ALT/SGPT) 42 U/L Total Bilirubin 0.5 MG/DL Sodium Level 141 MEQ/L Potassium Level 4.7 MEQ/L Chloride Level 105 MEQ/L Carbon Dioxide Level 24.9 MEQ/L Anion Gap 11 MEQ/L Estimat Glomerular Filtration Rate 106 ML/MIN Lipase 181 U/L Ethyl Alcohol Level 150 MG/DL Urine Color YELLOW Urine Turbidity CLEAR Urine pH 5.0 Urine Specific [place] 1.025 Urine Protein NEG mg/dL Urine Glucose (UA) NEG mg/dL Urine Ketones TRACE mg/dL Urine Occult Blood NEG Urine Nitrite NEG Urine Bilirubin NEG Urine Urobilinogen 4.0 OR GREATER mg/dL Urine Leukocyte Esterase NEG Urine RBC LESS THAN 1 /hpf Urine WBC LESS THAN 1 /hpf Urine Mucus FEW /lpf Microscopic Urinalysis Comment CULT NOT INDICATED Urine Opiates Screen NEG Urine Barbiturates Screen NEG Urine Amphetamines Screen NEG Urine Benzodiazepines Screen NEG Urine Cocaine Screen POS Urine Cannabinoids Screen NEG MDM Medical Decision Making Medical Screen Exam Complete: Yes Emergency Medical Condition: Yes Medical Record Reviewed: Yes Interpretation(s) CBC & BMP Diagram 03/15/18 16:25 Total Protein 8.6 H, Albumin 4.0, Calcium Level 8.7, Magnesium Level 2.4, Alkaline Phosphatase 83, Aspartate Amino Transf (AST/SGOT) 75 H, Alanine Aminotransferase (ALT/SGPT) 42, Total Bilirubin 0.5 Last Impressions Scrotum Ultrasound 03/15/18 0000 Signed Impressions: CONCLUSION: 1. The testicles appear normal. Blood flow is seen in the testicles bilaterall y. 2. Moderate right hydrocele. Abdomen/Pelvis CT 03/15/18 0000 Signed Impressions: CONCLUSION: 1. No acute abnormality. 2. Hepatic steatosis. toxicology positive for alcohol and cocaine Differential Diagnosis Acute abdomen versus inguinal hernia versus HIV versus depression versus GI bleed versus peptic ulcer disease versus noncompliant HIV patient versus suicidal ideation versus alcohol abuse versus hernia Narrative Course 42-year-old male that presents to the ED for evaluation of multiple complaints. Patient was properly examined and was found to have signs and symptoms of unclear etiology but does appear to be the most of his symptoms appear to be chronic from chronic illnesses including the hernia which appears to be there for 8 months. Patient actually was seen here about a year ago for evaluation of psychiatry. He had a hernia at that time was reducible. Does not appear to have changed since then. Per patient has been admitted to multiple hospitals different areas of [place]. He also complains of suicidal homicidal ideation as well as throwing up blood. He is noncompliant with his HIV medications. He does take multiple medications for his depression. At this time labs and imaging were ordered. Labs and imaging showed no sign of acute disease at this time. I do not see any sign of acute illness. Hernia is reducible. No sign of incarceration. Ultrasound did show some hydrocele. At this time patient will be medically clear as he does complain of suicidal ideation and depression. He does take medications for this. Patient was medically clear. Okay to be seen by psych. Of note patient has not had any nausea or vomiting here in the ED and has not vomited once. Mental health screening was discussed with the patient. Diagnosis Primary Impression: Suicidal ideation Raheem Reynolds Mar 15, 2018 16:53
[2018-03-15] MEDS ORDERED: MORPHINE SULFATE 4 MG/ML INJ IV PUSH ONE (17:00)
[2018-03-15 17:18] LABS: AUTOMATED NEUTROPHIL # 0.8 TH/MM3 (1.8-7.7); BASOPHIL % 2.2 % (0.0-2.0); HEMATOCRIT 38.4 % (39.0-51.0); HEMOGLOBIN 12.9 GM/DL (13.0-17.0); LYMPH % 49.4 % (9.0-44.0); MEAN CELL VOLUME 87.8 FL (80.0-100.0); MEAN CORPUSCULAR HEMOGLOBIN 29.5 PG (27.0-34.0); MEAN CORPUSCULAR HGB CONC 33.6 % (32.0-36.0); MEAN PLATELET VOLUME 7.6 FL (7.0-11.0); MONO % 9.9 % (0.0-8.0); MONOCYTE # 0.2 TH/MM3 (0-0.9); NEUT % 37.5 % (16.0-70.0); PLATELET COUNT 296 TH/MM3 (150-450); RED BLOOD COUNT 4.37 MIL/MM3 (4.50-5.90); RED CELL DISTRIBUTION WIDTH 18.2 % (11.6-17.2); WHITE BLOOD COUNT 2.1 TH/MM3 (4.0-11.0)
[2018-03-15 17:27] LABS: ALKALINE PHOSPHATASE 83 U/L (45-117); ALT (GPT) 42 U/L (12-78); TOTAL BILIRUBIN ADULT 0.5 MG/DL (0.2-1.0); TOTAL PROTEIN 8.6 GM/DL (6.4-8.2)
[2018-03-15 17:30] LABS: AST (GOT) 75 U/L (15-37); BICARBONATE 24.9 MEQ/L (21.0-32.0); BLOOD UREA NITROGEN 7 MG/DL (7-18); CALCIUM 8.7 MG/DL (8.5-10.1); CHLORIDE 105 MEQ/L (98-107); CREATININE 0.94 MG/DL (0.60-1.30); GLOMERULAR FILTRATION RATE 106 ML/MIN (>89); GLUCOSE,RANDOM 59 MG/DL (74-106); MAGNESIUM 2.4 MG/DL (1.5-2.5); SODIUM (NA) 141 MEQ/L (136-145)
--- NOTE | 2018-03-15 17:55 | RADRPT ---
EXAM DATE: 03/15/2018 5:47 PM EDT AGE/SEX: 42 years / Male INDICATIONS: Testicular pain. CLINICAL DATA: This is the patient's initial encounter. Patient reports that signs and symptoms have been present for 1 day and indicates a pain score of 10/10. MEDICAL/SURGICAL HISTORY: . Hiatal hernia. Inguinal hernia. Testicle pain. HIV. . Right ankle. Right tib/fib. COMPARISON: No prior exams available for comparison. MEASUREMENTS: Right Testicle:__4.1 x 2.3 x 2.3 cm Left Testicle:__4.7 x 2.6 x 2.0 cm FINDINGS: RIGHT: Testicle: Homogeneous echotexture without intra or extratesticular mass. Epididymis: Within normal limits. Hydrocele: Moderate hydrocele present. Varicocele: No evidence of varicocele. LEFT: Testicle: Homogeneous echotexture without intra or extratesticular mass. Epididymis: Within normal limits. Hydrocele: No hydrocele. Varicocele: No evidence of varicocele. Scrotum: Within normal limits. CONCLUSION: 1. The testicles appear normal. Blood flow is seen in the testicles bilaterally. 2. Moderate right hydrocele. Electronically signed by: Michael Castro MD 03/15/2018 5:53 PM EDT
[2018-03-15 18:01] LABS: BILIRUBIN, URINE NEG (NEG); BLOOD, URINE NEG (NEG); GLUCOSE,URINE NEG (NEG); KETONE, URINE TRACE mg/dL (NEG); MUCUS URINE FEW /lpf (OCC); NITRITE,URINE NEG (NEG); URINE COLOR YELLOW (YELLW/STRAW); URINE LEUKOCYTE ESTERASE NEG (NEG)
[2018-03-15 18:46] VITALS: BP 136/84; PULSE 80; RESP 18; O2SAT 99
--- NOTE | 2018-03-15 18:48 | PD ---
Physical Exam Date Seen by Provider: Mar 15, 2018 Narrative This patient presents with multiple complaints. Please see Ayo Reynolds's note for full details. Data Data Last Documented VS Vital Signs Date Time Temp Pulse Resp B/P (MAP) Pulse Ox O2 Delivery O2 Flow Rate FiO2 03/15/18 18:46 80 18 136/84 (101) 99 Room Air 03/15/18 15:55 97.9 Orders Orders Electrocardiogram (03/15/18 15:48) Complete Blood Count With Diff (03/15/18 15:48) Comprehensive Metabolic Panel (03/15/18 15:48) Prothrombin Time / Inr (Pt) (03/15/18 15:48) Act Partial Throm Time (Ptt) (03/15/18 15:48) Lipase (03/15/18 15:48) Urinalysis - C+S If Indicated (03/15/18 15:48) Magnesium (Mg) (03/15/18 15:48) Type And Screen (03/15/18 15:48) Drug Screen, Random Urine (03/15/18 15:48) Alcohol (Ethanol) (03/15/18 15:48) Ct Abd/Pel W Iv Contrast(Rout) (03/15/18 ) Sodium Chlor 0.9% 1000 Ml Inj (Ns 1000 M (03/15/18 16:00) Us Testicles W Doppler (03/15/18 ) Pantoprazole Inj (Protonix Inj) (03/15/18 16:00) Metoclopramide Inj (Reglan Inj) (03/15/18 16:15) Morphine Inj (Morphine Inj) (03/15/18 17:00) Iohexol 350 Inj (Omnipaque 350 Inj) (03/15/18 15:04) Psych Screen (03/15/18 18:46) Labs Laboratory Tests Test 03/15/18 16:25 03/15/18 16:50 White Blood Count 2.1 TH/MM3 Red Blood Count 4.37 MIL/MM3 Hemoglobin 12.9 GM/DL Hematocrit 38.4 % Mean Corpuscular Volume 87.8 FL Mean Corpuscular Hemoglobin 29.5 PG Mean Corpuscular Hemoglobin Concent 33.6 % Red Cell Distribution Width 18.2 % Platelet Count 296 TH/MM3 Mean Platelet Volume 7.6 FL Neutrophils (%) (Auto) 37.5 % Lymphocytes (%) (Auto) 49.4 % Monocytes (%) (Auto) 9.9 % Eosinophils (%) (Auto) 1.0 % Basophils (%) (Auto) 2.2 % Neutrophils # (Auto) 0.8 TH/MM3 Lymphocytes # (Auto) 1.0 TH/MM3 Monocytes # (Auto) 0.2 TH/MM3 Eosinophils # (Auto) 0.0 TH/MM3 Basophils # (Auto) 0.0 TH/MM3 CBC Comment AUTO DIFF Differential Comment AUTO DIFF CONFIRMED Platelet Estimate NORMAL Platelet Morphology Comment NORMAL Prothrombin Time 10.0 SEC Prothromb Time International Ratio 1.0 RATIO Activated Partial Thromboplast Time 28.7 SEC Blood Urea Nitrogen 7 MG/DL Creatinine 0.94 MG/DL Random Glucose 59 MG/DL Total Protein 8.6 GM/DL Albumin 4.0 GM/DL Calcium Level 8.7 MG/DL Magnesium Level 2.4 MG/DL Alkaline Phosphatase 83 U/L Aspartate Amino Transf (AST/SGOT) 75 U/L Alanine Aminotransferase (ALT/SGPT) 42 U/L Total Bilirubin 0.5 MG/DL Sodium Level 141 MEQ/L Potassium Level 4.7 MEQ/L Chloride Level 105 MEQ/L Carbon Dioxide Level 24.9 MEQ/L Anion Gap 11 MEQ/L Estimat Glomerular Filtration Rate 106 ML/MIN Lipase 181 U/L Ethyl Alcohol Level 150 MG/DL Urine Color YELLOW Urine Turbidity CLEAR Urine pH 5.0 Urine Specific [place] 1.025 Urine Protein NEG mg/dL Urine Glucose (UA) NEG mg/dL Urine Ketones TRACE mg/dL Urine Occult Blood NEG Urine Nitrite NEG Urine Bilirubin NEG Urine Urobilinogen 4.0 OR GREATER mg/dL Urine Leukocyte Esterase NEG Urine RBC LESS THAN 1 /hpf Urine WBC LESS THAN 1 /hpf Urine Mucus FEW /lpf Microscopic Urinalysis Comment CULT NOT INDICATED Urine Opiates Screen NEG Urine Barbiturates Screen NEG Urine Amphetamines Screen NEG Urine Benzodiazepines Screen NEG Urine Cocaine Screen POS Urine Cannabinoids Screen NEG MDM Supervised Visit with EAN: Yes Narrative Course I, Dr. Porter, have reviewed the advance practice practitioner's documentation and am in agreement, met with the patient face to face, made the diagnosis, and the medical decision making was done by me. *My assessment and Findings: Patient is lying on his right side. He did not initially acknowledge my presence when I went in and introduced myself to him. He has not had any hematemesis here. His vital signs have been stable. His abdomen is soft. His mucous membranes are pink. Last Impressions Scrotum Ultrasound 03/15/18 0000 Signed Impressions: CONCLUSION: 1. The testicles appear normal. Blood flow is seen in the testicles bilaterall y. 2. Moderate right hydrocele. CBC & BMP Diagram 03/15/18 16:25 Total Protein 8.6 H, Albumin 4.0, Calcium Level 8.7, Magnesium Level 2.4, Alkaline Phosphatase 83, Aspartate Amino Transf (AST/SGOT) 75 H, Alanine Aminotransferase (ALT/SGPT) 42, Total Bilirubin 0.5 This patient is stable for discharge to home. See Dmitriy Arevalo note for a more detailed H&P, final diagnosis and disposition Virginia Porter MD Mar 15, 2018 18:48
--- NOTE | 2018-03-15 18:49 | RADRPT ---
EXAM DATE: 03/15/2018 6:15 PM EDT AGE/SEX: 42 years / Male INDICATIONS: ABDOMEN PAIN,BLOODY VOMIT,SWOLLEN TESTICAL,MID ABDOMEN AND GROAN PAIN CLINICAL DATA: This is the patient's initial encounter. Patient reports that signs and symptoms have been present for 1 day and indicates a pain score of 8/10. MEDICAL/SURGICAL HISTORY: Hiatal hernia. HIV. INGUINAL HERNIA None. ORAL CONTRAST: No oral contrast ingested. RADIATION DOSE: 6.13 CTDI (mGy) COMPARISON: None. TECHNIQUE: Multiple contiguous axial images were obtained through the abdomen and pelvis following b olus infusion of 96 ml Omnipaque 350 (iohexol) nonionic water-soluble contrast as a single exam dos e. No oral contrast ingested. Using automated exposure control and adjustment of the mA and/or kV ac cording to patient size, radiation dose was kept as low as reasonably achievable to obtain optimal di agnostic quality images. DICOM format image data is available electronically for review and comparis on. FINDINGS: Lower Lungs: The visualized lower lungs are clear. Liver: The liver has a homogeneously low density without space-occupying lesion. There is no dilation of the biliary tree. Spleen: Homogeneous density without enlargement. Pancreas: Unremarkable without mass or calcification. Kidneys: Normal in size and shape. No evidence of mass or hydronephrosis. Adrenal Glands: Unremarkable. Aorta: The aorta and proximal iliac vessels are grossly unremarkable without aneurysmal dilation. Bowel/Mesentery: Appendix is normal by CT criteria. The bowel loops are grossly unremarkable. The ce cum and sigmoid colon have a normal configuration. Abdominal Wall: Intact. Retroperitoneum: No evidence of adenopathy in the retrocrural, para-aortic, or deep pelvic regions. Bladder: Contours are smooth. Reproductive Organs: No abnormal masses or calcifications seen. Inguinal: The inguinal region is unremarkable without evidence of adenopathy. Bony Structures: Unremarkable. CONCLUSION: 1. No acute abnormality. 2. Hepatic steatosis. Electronically signed by: Bipin Melgar MD 03/15/2018 6:48 PM EDT
--- NOTE | 2018-03-16 12:28 | EKG ---
Date Performed: 03/15/2018 Time Performed: 16:16:01 PTAGE: 42 years EKG: Sinus rhythm PROLONGED QT INTERVAL ABNORMAL ECG NO PREVIOUS TRACING DOCTOR: Elvis Bennett Interpretating Date/Time 03/16/2018 12:25:55
--- NOTE | 2018-03-16 15:08 | PD ---
History of Present Illness Chief Complaint: Medical Clearance Time Seen by Provider: 14:50 Travel History International Travel<30 Days: No Contact w/Intl Traveler<30days: No Known affected area: No Legal Status Legal Status: Voluntary History of Present Illness: History of Present Illness HPI 42-year-old, , male with reported history of depression the presents to the ED, voluntarily for evaluation of multiple complaints. ED note is reviewed and partially included in this evaluation. " Patient's main complaint appears to be "intestinal issues ". Per patient has been having abdominal pain on and off for 8 months. He is also been having nausea and vomiting has been vomiting blood for the past 2 days. The patient he came here from [place] to work and apparently he cannot work because he had more pain. He also has a hernia that he wants us to check out on his right lower side. Per patient he also has a history of HIV positive and currently takes no medications. Per patient he has been almost out of it for about a year. Per patient were concerned him the most is that he was been vomiting a couple times with blood. He states having had alcohol today with denies drinking alcohol daily basis. He states also that he has used drugs in the past and states that he uses cocaine. He states that he does have pain and swelling in his right testicle he attributes this to the hernia . Lastly patient also complains that he feels depressed and suicidal and he wants to "be Lynn acted ". He takes multiple medications for depression. Per patient does not seem to be working and he feels hopeless which is what he is seeking help for. Per patient he "wants to "". EMR reviewed. He was seen and admitted to our psychiatric unit in 2017 under a BA after he reported that [place]. Current toxicology is negative Patient is seen. Upon arrival to [facility] his first request is for food. He is irritable, demanding. His speech is clear and logical of normal rate and tone. No evidence of hallucinations, delusions or paranoia. No significant objective clinical signs of depression are identified. He initially sates that his medication, Prozac and Trazodone is not working and has not been working for several months. He then states that he just got the prescription a few days ago from [facility]. When asked where he usually receives his psychiatric c are he is vague stating " [facility]".He goes on to inform me that he came to [place] to work but has not been paid and that he is now homeless. He makes multiples demands including needing bus pass as well as a pass for the [employer] to get back to [place]. " I think that is the best choice for me now. I find no evidence of unstable mental illness at this time. PFSH Past Medical History Autoimmune Disease: Yes (HIV+) Blood Disorders: Yes (HIV SINCE 2011) Depression: Yes Cancer: No Cardiovascular Problems: No Diabetes: No Diminished Hearing: No Endocrine: No Genitourinary: No Headaches: No Hiatal Hernia: Yes Immune Disorder: Yes Inguinal Hernia: Yes Musculoskeletal: No Neurologic: No Psychiatric: No Reproductive: No Respiratory: No Seizures: No Sickle Cell Disease: No Tetanus Vaccination: < 5 Years Past Surgical History Other Surgery: Yes (Right tib/fib with 11 screws) Psychiatric History Psychiatric History Hx Psychiatric Treatment: MDD History of Inpatient Treatment: Yes ([facility], [facility], [facility] ) Social History Hx Alcohol Use: Yes (BEER THIS MORNING) Hx Tobacco Use: Yes (WHATEVER HE CAN GET) Hx Substance Use: Yes Substance Use Type: Alcohol, Cocaine Other Substances Used: Mikki states he "drinks a six every day, and uses powder cocaine. Hx of Substance Use Treatment: No Family Psychiatric History Negative Allergies-Medications (Allergen,Severity, Reaction): Coded Allergies: No Known Allergies (Verified Adverse Reaction, Unknown, 03/15/18) Reported Meds & Prescriptions Reported Meds & Active Scripts Active Reported Trazodone (Trazodone HCl) 150 Mg Tablet 150 Mg PO HS Olanzapine 10 Mg Tab 10 Mg PO HS Odefsey (Iiezfftdjspeu-Mdeugawrmpd-Qddkeafhl Alafenam) 200-200-25 Mg Tab 1 Tab PO DAILY Prozac (Fluoxetine HCl) 40 Mg Cap 40 Mg PO DAILY Review of Systems Gastrointestinal: COMPLAINS OF: Abdominal pain Genitourinary: COMPLAINS OF: Testicular Pain Psychiatric: COMPLAINS OF: Depression Mental Status Examination Appearance: Appropriate Consciousness: Alert Orientation: x4 Motor Activity: Normal gait Speech: Unremarkable Language: Adequate Fund of Knowledge: Adequate Attention and Concentration: Adequate Memory: Unremarkable Mood: Appropriate, Irritable Affect: Appropriate Thought Process & Associations: Intact, Logical, Goal directed Thought Content: Appropriate Hallucination Type: None Delusion Type: None Suicidal Ideation: No Suicidal Plan: No Suicidal Intention: No Homicidal Ideation: No Homicidal Plan: No Homicidal Intention: No Insight: Fair Judgment: Adequate [facility] Medical Decision Making Medical Record Reviewed: Yes Assessment/Plan 42-year-old male with reported history of MDD, alcohol use disorder who presents on a voluntary basis requesting a psychiatric evaluation as well as requesting to be placed under a Lynn act. The patient initially comes to the ED with multiple medical issues. Patient at this time does not present evidence of unstable mental illness. He came to the hospital for treatment of various medical complaints. He then requested to be placed under a BA. His presentation appears malingered with intent of obtaining senior care or transportation from the hospital. Will have linda Torres provide him with area resources as well as with bus [employer]. Orders Orders Electrocardiogram (03/15/18 15:48) Complete Blood Count With Diff (03/15/18 15:48) Comprehensive Metabolic Panel (03/15/18 15:48) Prothrombin Time / Inr (Pt) (03/15/18 15:48) Act Partial Throm Time (Ptt) (03/15/18 15:48) Lipase (03/15/18 15:48) Urinalysis - C+S If Indicated (03/15/18 15:48) Magnesium (Mg) (03/15/18 15:48) Type And Screen (03/15/18 15:48) Drug Screen, Random Urine (03/15/18 15:48) Alcohol (Ethanol) (03/15/18 15:48) Ct Abd/Pel W Iv Contrast(Rout) (03/15/18 ) Sodium Chlor 0.9% 1000 Ml Inj (Ns 1000 M (03/15/18 16:00) Us Testicles W Doppler (03/15/18 ) Pantoprazole Inj (Protonix Inj) (03/15/18 16:00) Metoclopramide Inj (Reglan Inj) (03/15/18 16:15) Morphine Inj (Morphine Inj) (03/15/18 17:00) Iohexol 350 Inj (Omnipaque 350 Inj) (03/15/18 15:04) Psych Screen (03/15/18 18:46) Diet Regular Basic (03/16/18 Lunch) Diet Regular Basic (03/16/18 Dinner) Results Vital Signs Date Time Temp Pulse Resp B/P (MAP) Pulse Ox O2 Delivery O2 Flow Rate FiO2 03/15/18 18:46 80 18 136/84 (101) 99 Room Air 03/15/18 17:21 18 03/15/18 15:55 97.9 73 18 161/97 (118) 99 Room Air 03/15/18 15:23 98.5 73 16 143/87 (105) 99 Laboratory Tests Test 03/15/18 16:25 03/15/18 16:50 White Blood Count 2.1 Red Blood Count 4.37 Hemoglobin 12.9 Hematocrit 38.4 Mean Corpuscular Volume 87.8 Mean Corpuscular Hemoglobin 29.5 Mean Corpuscular Hemoglobin Concent 33.6 Red Cell Distribution Width 18.2 Platelet Count 296 Mean Platelet Volume 7.6 Neutrophils (%) (Auto) 37.5 Lymphocytes (%) (Auto) 49.4 Monocytes (%) (Auto) 9.9 Eosinophils (%) (Auto) 1.0 Basophils (%) (Auto) 2.2 Neutrophils # (Auto) 0.8 Lymphocytes # (Auto) 1.0 Monocytes # (Auto) 0.2 Eosinophils # (Auto) 0.0 Basophils # (Auto) 0.0 CBC Comment AUTO DIFF Differential Comment AUTO DIFF CONFIRMED Platelet Estimate NORMAL Platelet Morphology Comment NORMAL Prothrombin Time 10.0 Prothromb Time International Ratio 1.0 Activated Partial Thromboplast Time 28.7 Blood Urea Nitrogen 7 Creatinine 0.94 Random Glucose 59 Total Protein 8.6 Albumin 4.0 Calcium Level 8.7 Magnesium Level 2.4 Alkaline Phosphatase 83 Aspartate Amino Transf (AST/SGOT) 75 Alanine Aminotransferase (ALT/SGPT) 42 Total Bilirubin 0.5 Sodium Level 141 Potassium Level 4.7 Chloride Level 105 Carbon Dioxide Level 24.9 Anion Gap 11 Estimat Glomerular Filtration Rate 106 Lipase 181 Ethyl Alcohol Level 150 Urine Color YELLOW Urine Turbidity CLEAR Urine pH 5.0 Urine Specific [place] 1.025 Urine Protein NEG Urine Glucose (UA) NEG Urine Ketones TRACE Urine Occult Blood NEG Urine Nitrite NEG Urine Bilirubin NEG Urine Urobilinogen 4.0 OR GREATER Urine Leukocyte Esterase NEG Urine RBC LESS THAN 1 Urine WBC LESS THAN 1 Urine Mucus FEW Microscopic Urinalysis Comment CULT NOT INDICATED Urine Opiates Screen NEG Urine Barbiturates Screen NEG Urine Amphetamines Screen NEG Urine Benzodiazepines Screen NEG Urine Cocaine Screen POS Urine Cannabinoids Screen NEG Diagnosis Primary Impression: Malingering Ruled Out: Suicidal ideation Psychiatrically Cleared: Yes Med/ Other Pt Specific Info: No Change to Meds Disposition: 01 DISCHARGE HOME Condition: Stable Sepideh Quinonez [facility] Mar 16, 2018 15:08
--- NOTE | 2018-03-16 15:11 | PD ---
Physical Exam Date Seen by Provider: Mar 16, 2018 Time Seen by Provider: 15:10 Narrative 42-year-old male previously medically cleared for psychiatric evaluation, has been seen in psychiatrically cleared for discharge by psychiatric staff. Patient remains medically stable for discharge at this time. Follow-up will be based on psychiatric note. Data Data Last Documented VS Vital Signs Date Time Temp Pulse Resp B/P (MAP) Pulse Ox O2 Delivery O2 Flow Rate FiO2 03/15/18 18:46 80 18 136/84 (101) 99 Room Air 03/15/18 15:55 97.9 Orders Orders Electrocardiogram (03/15/18 15:48) Complete Blood Count With Diff (03/15/18 15:48) Comprehensive Metabolic Panel (03/15/18 15:48) Prothrombin Time / Inr (Pt) (03/15/18 15:48) Act Partial Throm Time (Ptt) (03/15/18 15:48) Lipase (03/15/18 15:48) Urinalysis - C+S If Indicated (03/15/18 15:48) Magnesium (Mg) (03/15/18 15:48) Type And Screen (03/15/18 15:48) Drug Screen, Random Urine (03/15/18 15:48) Alcohol (Ethanol) (03/15/18 15:48) Ct Abd/Pel W Iv Contrast(Rout) (03/15/18 ) Sodium Chlor 0.9% 1000 Ml Inj (Ns 1000 M (03/15/18 16:00) Us Testicles W Doppler (03/15/18 ) Pantoprazole Inj (Protonix Inj) (03/15/18 16:00) Metoclopramide Inj (Reglan Inj) (03/15/18 16:15) Morphine Inj (Morphine Inj) (03/15/18 17:00) Iohexol 350 Inj (Omnipaque 350 Inj) (03/15/18 15:04) Psych Screen (03/15/18 18:46) Diet Regular Basic (03/16/18 Lunch) Diet Regular Basic (03/16/18 Dinner) Labs Laboratory Tests Test 03/15/18 16:25 03/15/18 16:50 White Blood Count 2.1 TH/MM3 Red Blood Count 4.37 MIL/MM3 Hemoglobin 12.9 GM/DL Hematocrit 38.4 % Mean Corpuscular Volume 87.8 FL Mean Corpuscular Hemoglobin 29.5 PG Mean Corpuscular Hemoglobin Concent 33.6 % Red Cell Distribution Width 18.2 % Platelet Count 296 TH/MM3 Mean Platelet Volume 7.6 FL Neutrophils (%) (Auto) 37.5 % Lymphocytes (%) (Auto) 49.4 % Monocytes (%) (Auto) 9.9 % Eosinophils (%) (Auto) 1.0 % Basophils (%) (Auto) 2.2 % Neutrophils # (Auto) 0.8 TH/MM3 Lymphocytes # (Auto) 1.0 TH/MM3 Monocytes # (Auto) 0.2 TH/MM3 Eosinophils # (Auto) 0.0 TH/MM3 Basophils # (Auto) 0.0 TH/MM3 CBC Comment AUTO DIFF Differential Comment AUTO DIFF CONFIRMED Platelet Estimate NORMAL Platelet Morphology Comment NORMAL Prothrombin Time 10.0 SEC Prothromb Time International Ratio 1.0 RATIO Activated Partial Thromboplast Time 28.7 SEC Blood Urea Nitrogen 7 MG/DL Creatinine 0.94 MG/DL Random Glucose 59 MG/DL Total Protein 8.6 GM/DL Albumin 4.0 GM/DL Calcium Level 8.7 MG/DL Magnesium Level 2.4 MG/DL Alkaline Phosphatase 83 U/L Aspartate Amino Transf (AST/SGOT) 75 U/L Alanine Aminotransferase (ALT/SGPT) 42 U/L Total Bilirubin 0.5 MG/DL Sodium Level 141 MEQ/L Potassium Level 4.7 MEQ/L Chloride Level 105 MEQ/L Carbon Dioxide Level 24.9 MEQ/L Anion Gap 11 MEQ/L Estimat Glomerular Filtration Rate 106 ML/MIN Lipase 181 U/L Ethyl Alcohol Level 150 MG/DL Urine Color YELLOW Urine Turbidity CLEAR Urine pH 5.0 Urine Specific [place] 1.025 Urine Protein NEG mg/dL Urine Glucose (UA) NEG mg/dL Urine Ketones TRACE mg/dL Urine Occult Blood NEG Urine Nitrite NEG Urine Bilirubin NEG Urine Urobilinogen 4.0 OR GREATER mg/dL Urine Leukocyte Esterase NEG Urine RBC LESS THAN 1 /hpf Urine WBC LESS THAN 1 /hpf Urine Mucus FEW /lpf Microscopic Urinalysis Comment CULT NOT INDICATED Urine Opiates Screen NEG Urine Barbiturates Screen NEG Urine Amphetamines Screen NEG Urine Benzodiazepines Screen NEG Urine Cocaine Screen POS Urine Cannabinoids Screen NEG MDM Medical Record Reviewed: Yes Supervised Visit with EAN: Yes Narrative Course 42-year-old male previously medically cleared for psychiatric evaluation, has been seen in psychiatrically cleared for discharge by psychiatric staff. Patient remains medically stable for discharge at this time. Follow-up will be based on psychiatric note. Diagnosis Primary Impression: Suicidal ideation Additional Impression: Malingering Patient Instructions: General Instructions Disposition: 01 DISCHARGE HOME Condition: Stable Brian Naidu Mar 16, 2018 15:11
== END 2018-03-16 15:22 | disposition home or self-care (01) ==
LOC: NEPE 15:03 → NEPJ 03-16 15:22
DX: R45.851 Suicidal ideations (principal); F14.90 Cocaine use, unspecified, uncomplicated; N43.3 Hydrocele, unspecified; K76.0 Fatty (change of) liver, not elsewhere classified; F39 Unspecified mood [affective] disorder; F32.9 Major depressive disorder, single episode, unspecified; Y90.6 Blood alcohol level of 120-199 mg/100 ml; Z76.5 Malingerer [conscious simulation]; Z79.899 Other long term (current) drug therapy; Z72.0 Tobacco use; Z21 Asymptomatic human immunodeficiency virus [HIV] infection status; Z91.14 Patient's other noncompliance with medication regimen
CPT/HCPCS: 74177; 76870; 80053; 80307; 81001; 83690; 83735; 85025; 85610; 85730; 86850; 86900; 86901; 93005; 93975; 96361; 96374; 96375; 99285; C9113; J2270; J2765; J7030; Q9967